=== PATIENT | male | born 1965 | race Caucasian/White ===

== ENCOUNTER 2018-09-12 10:06 | Emergency (ER) | payer OTHER ==
[2018-09-12] MEDS: IBUPROFEN 200 MG TAB PO (11:10)
== END 2018-09-12 12:20 | disposition home or self-care (01) ==
LOC: FTE 10:06
DX: M25.512 Pain in left shoulder (principal); M65.20 Calcific tendinitis, unspecified site; F17.210 Nicotine dependence, cigarettes, uncomplicated; R20.0 Anesthesia of skin
CPT/HCPCS: 73030; 73030-RT; 93005; 99284-25